=== PATIENT | male | born 1990 | race Two or more races ===

== ENCOUNTER 2022-09-02 08:37 | Emergency (ER) | payer OTHER ==
[~2022-09-02] VITALS: Ht 175.3 cm; Wt 90.7 kg
--- NOTE | 2022-09-02 08:40 | NUR ---
RECVED PT 32 YRS MALE WALKING TO ED FOR LT FLANK PAIN 05/17 STERTED AT 0730 THIS MORNING
--- NOTE | 2022-09-02 08:50 | NUR ---
INSERTED ANG CATHETER 18 ON LT AC BLOOD DROW AND SENT TO LAB
--- NOTE | 2022-09-02 09:00 | NUR ---
UA SENT TO LAB
[2022-09-02 09:25] LABS: BASOPHILS % (AUTO) 0.8 % (0.0-2.0); EOSINOPHILS % (AUTO) 0.8 % (0.0-6.0); HEMATOCRIT 44 % (39-51); HEMOGLOBIN 14.5 g/dL (13.5-17.5); LYMPHOCYTES # (AUTO) 2.1 K/uL (0.8-4.8); LYMPHOCYTES % (AUTO) 36.6 % (20.0-44.0); MEAN CORPUSCULAR HGB CONC 33 g/dl (31.0-36.0); MEAN CORPUSCULAR VOLUME 88 fL (80-96); MONOCYTES # (AUTO) 0.5 K/uL (0.1-1.30); MONOCYTES % (AUTO) 7.9 % (2.0-12.0); NEUTROPHILS # (AUTO) 3.1 K/uL (1.8-8.9); NEUTROPHILS % (AUTO) 53.9 % (43.0-81.0); PLATELET COUNT (AUTO) 279 K/uL (150-450); RED BLOOD CELL COUNT(AUTO) 4.95 MIL/uL (4.5-6.0); WHITE BLOOD COUNT (AUTO) 5.7 K/uL (4.3-11.0)
[2022-09-02] MEDS ORDERED: ONDANSETRON HCL/PF 4 MG/2 ML VIAL ONE (09:27)
[2022-09-02] MEDS ORDERED: KETOROLAC TROMETHAMINE 15 MG/ML VIAL ONE ×3 (09:27→14:37)
[2022-09-02] MEDS ORDERED: KETOROLAC TROMETHAMINE INJ 30 MG/ML VIAL IV ONE ×2 (09:30→12:30)
[2022-09-02] MEDS ORDERED: ONDANSETRON HCL/PF 4 MG/2 ML VIAL IV ONE (09:30)
[2022-09-02] MEDS ORDERED: IV NS 0.9% 1,000 ML IV ONE (09:30)
[2022-09-02 09:33] LABS: BILIRUBIN,URINE NEGATIVE (NEGATIVE); COLOR,URINE YELLOW (YELLOW); LEUKOCYTE ESTERASE ,URINE NEGATIVE (NEGATIVE); NITRITE, URINE NEGATIVE (NEGATIVE); PROTEIN,URINE TRACE mg/dl (NEGATIVE); UGLUCOSE NEGATIVE (NEGATIVE); UROBILINOGEN,URINE 0.2 EU/dL (0.2)
--- NOTE | 2022-09-02 09:45 | NUR ---
SCOROTUM US DONE AT BED SIDE
[2022-09-02 10:01] LABS: RBC,URINE 21-50 /HPF (0-2)
[2022-09-02 10:02] LABS: BACTERIA,URINE Few /HPF (None Seen); SQUAMOUS EPITHELIAL CELL,UR Few /HPF (None Seen); URINE AMORPHOUS PHOSPHATES Many /HPF (None Seen)
[2022-09-02 10:07] LABS: CALCIUM, SERUM 9.5 mg/dL (8.5-10.1); CREATININE 1.4 mg/dL (0.6-1.3); POTASSIUM 3.7 mmol/L (3.5-5.1)
[2022-09-02] MEDS ORDERED: FAMOTIDINE/PF INJ 20 MG/2 ML VIAL IV ONE ×2 (10:14→10:30)
[2022-09-02] MEDS ORDERED: MORPHINE SULFATE INJ 2 MG/ML DISP.SYRIN ONE (10:19)
[2022-09-02] MEDS ORDERED: MORPHINE SULFATE INJ 4 MG/ML DISP.SYRIN ONE (10:19)
[2022-09-02] MEDS ORDERED: CT SWABBABLE VALVE TRANS SET 1 EA INFUS.SET MC ONE (10:27)
[2022-09-02] MEDS ORDERED: IOHEXOL-300 100 ML VIAL IV ONE (10:27)
[2022-09-02] MEDS ORDERED: IV NS 0.9% 250 ML IV ONE (10:28)
[2022-09-02] MEDS ORDERED: MORPHINE SULFATE INJ 2 MG/ML DISP.SYRIN IV ONE (10:30)
--- NOTE | 2022-09-02 10:35 | NUR ---
TO CT SCAN OF ABDOMIN
[2022-09-02] MEDS ORDERED: HYDROMORPHONE 1 MG/1 ML DISP.SYRIN IV ONE (11:00)
[2022-09-02] MEDS ORDERED: HYDROMORPHONE 1 MG/1 ML DISP.SYRIN ONE (11:21)
--- NOTE | 2022-09-02 12:30 | NUR ---
PT REFUSE D TORADOL AT THIS TIME PAIN LEVEL 09/17 PT TOLORATED
--- NOTE | 2022-09-02 12:42 | NUR ---
COVID SWAB AND MRSA DONE BY Armin DOUGLAS
--- NOTE | 2022-09-02 14:15 | NUR ---
RESTING AND COMFORTABLE at this time
[2022-09-02] MEDS ORDERED: TAMS-12 PO (14:20)
[2022-09-02] MEDS ORDERED: HYDR-3976 PO (14:20)
[2022-09-02] MEDS ORDERED: IBUP-1958 PO (14:20)
--- NOTE | 2022-09-02 15:00 | NUR ---
IV removed. Catheter intact and site benign. Pressure and 4x4 applied to site. No bleeding noted.
--- NOTE | 2022-09-02 15:05 | NUR ---
urine striner given to pt
[2022-09-02 15:57] VITALS: BP 110/70
--- NOTE | 2022-09-02 15:58 | NUR ---
Patient discharged to home in stable condition. Written and verbal after care instructions given. Patient verbalizes understanding of instruction.
== END 2022-09-02 15:58 | disposition home or self-care (01) ==
LOC: ER 08:48
DX: N20.0 Calculus of kidney (principal); R10.9 Unspecified abdominal pain; Z20.822 Contact with and (suspected) exposure to COVID-19; Z87.442 Personal history of urinary calculi
CPT/HCPCS: 99285; 74177; 96374; 96375; 96361; 87426; 96376; 76870; 85025; 80048; 87086; 81001; 36415; 87081; J2270 ×2; J3490; J2405; J7030; J7050; Q9967; J1170; J1885 ×3; C9803